=== PATIENT | female | born 1955 | race Caucasian/White ===

== ENCOUNTER → 2023-04-05 09:58 | Outpatient (BNVA) | payer MEDICARE, SELFPAY | PROVIDERS: PCP Family Medicine; Visit Provider Family Medicine | DX: I10 Essential (primary) hypertension (principal); E03.9 Hypothyroidism, unspecified; M17.12 Unilateral primary osteoarthritis, left knee | CPT/HCPCS: 80053; 80061; 82043; 84443; 85025 ==

== ENCOUNTER 2023-10-01 14:34 | Outpatient (CLI) | payer MEDICARE, SELFPAY ==
--- NOTE | 2023-10-01 14:40 | XRR_ITS ---
PROCEDURE INFORMATION: Exam: XR Left Knee Exam date and time: 10/01/2023 2:46 PM Age: 68 years old Clinical indication: Pain; Knee; Left; Additional info: Left knee pain TECHNIQUE: Imaging protocol: Radiologic exam of the left knee. Views: 3 views. COMPARISON: No relevant prior studies available. FINDINGS: Bones/joints: Moderate arthritis medial compartment left knee. Moderate arthritis left patellofemoral articulation. Large left knee joint effusion. Otherwise, unremarkable. Soft tissues: Normal. XR/XR knee LT 3V* [id number] IMPRESSION: Moderate arthritis with large left knee joint effusion.
== END 2023-10-01 14:35 | disposition home or self-care (01) ==
LOC: RAD 14:37
PROVIDERS: PCP Family Medicine; Visit Provider Family Medicine
DX: M17.12 Unilateral primary osteoarthritis, left knee (principal); I10 Essential (primary) hypertension; E03.9 Hypothyroidism, unspecified
CPT/HCPCS: 73562; 80053; 84443

== ENCOUNTER 2023-10-09 09:52 | Outpatient (CLI) | payer MEDICARE, SELFPAY ==
--- NOTE | 2023-10-09 10:30 | MM_ITS ---
WS: [id number] BILATERAL SCREENING DIGITAL TOMOSYNTHESIS MAMMOGRAM WITH CAD HISTORY: screening COMPARISON: None available. Bilateral CC and MLO views with tomosynthesis and synthetic mammography submitted. Computer aided det ection analyzed. Breast composition: There are scattered areas of fibroglandular density. No suspicious masses, microc alcifications or architectural distortion. Arterial calcifications and round small scattered calcific ations in each breast. IMPRESSION: MM/[place] [id number] BI-RADS: 2-Benign FOLLOW UP: 1 Year Follow-up
== END 2023-10-09 09:53 | disposition home or self-care (01) ==
LOC: RAD 09:53
PROVIDERS: PCP Family Medicine; Visit Provider Family Medicine
DX: Z12.31 Encounter for screening mammogram for malignant neoplasm of breast (principal)
CPT/HCPCS: 77063; 77067

== ENCOUNTER → 2023-11-13 09:58 | Outpatient (BNVA) | payer MEDICARE, SELFPAY | PROVIDERS: PCP Family Medicine; Referring Provider Family Medicine; Visit Provider Student in an Organized Health Care Education/Training Program | DX: M17.12 Unilateral primary osteoarthritis, left knee; Z46.89 Encounter for fitting and adjustment of other specified devices | CPT/HCPCS: 20610; 73560; 73565; 97760; 99204; J3301; L1851 ==

== ENCOUNTER 2023-11-13 11:31 | Outpatient (CLI) | payer MEDICARE, SELFPAY | END 2023-11-13 11:32 | disposition home or self-care (01) | LOC: SPT 11:31 | PROVIDERS: PCP Family Medicine; Visit Provider Student in an Organized Health Care Education/Training Program | DX: Z46.89 Encounter for fitting and adjustment of other specified devices (principal); M17.12 Unilateral primary osteoarthritis, left knee | CPT/HCPCS: 20610; 97760; J3301; L1851 ==

== ENCOUNTER → 2024-02-26 10:28 | Outpatient (BNVA) | payer MEDICARE, SELFPAY | PROVIDERS: PCP Family Medicine; Visit Provider Physician Assistant | DX: M17.12 Unilateral primary osteoarthritis, left knee (principal) | CPT/HCPCS: 99214 ==

== ENCOUNTER → 2024-04-16 15:29 | Outpatient (BNVA) | payer MEDICARE, SELFPAY | PROVIDERS: PCP Family Medicine; Visit Provider Physician Assistant | DX: M17.12 Unilateral primary osteoarthritis, left knee (principal); Z01.818 Encounter for other preprocedural examination | CPT/HCPCS: 36415; 80053; 81001; 85025; 99213 ==

== ENCOUNTER 2024-04-22 14:22 | Outpatient (CLI) | payer MEDICARE, SELFPAY ==
--- NOTE | 2024-04-22 15:00 | CT_ITS ---
WS: [id number] CT LEFT knee, noncontrast HISTORY: M17.12 - Unilateral primary osteoarthritis, left knee TECHNIQUE: Protocol for [facility] total knee replacement has been obtained. This includes axial imaging th rough the LEFT hip, LEFT knee and LEFT ankle. DLP: 938.05 mGy.cm COMPARISON: Radiograph 11/13/2023 Mild SI joint degenerative air. Mild narrowing of the hip joints. No fracture or dislocation. No soft tissue abnormalities. LEFT knee: Mild to moderate tricompartment osteoarthritis. Marginal osteophytes. No fractures. Slight ly greater narrowing of the medial compartment. Moderate joint effusion. Negative LEFT ankle. CT/CT knee LT [facility] [id number] IMPRESSION: CT imaging provided for [facility] robotic total knee replacement.
== END 2024-04-22 14:23 | disposition home or self-care (01) ==
LOC: RAD 14:26
PROVIDERS: PCP Internal Medicine; Visit Provider Physician Assistant
DX: Z01.818 Encounter for other preprocedural examination (principal); M17.12 Unilateral primary osteoarthritis, left knee; M25.762 Osteophyte, left knee; M25.462 Effusion, left knee
CPT/HCPCS: 73700

== ENCOUNTER → 2024-04-25 10:10 | Outpatient (BNVA) | payer MEDICARE, SELFPAY | PROVIDERS: PCP Internal Medicine; Visit Provider Family Medicine | DX: Z01.818 Encounter for other preprocedural examination (principal); I49.8 Other specified cardiac arrhythmias; R94.31 Abnormal electrocardiogram [ECG] [EKG] | CPT/HCPCS: 93005 ==

== ENCOUNTER 2024-05-07 15:17 | Observation (INO) | payer MEDICARE, SELFPAY ==
[2024-05-07] VITALS (18 sets, daily range): BP systolic 122–157; BP diastolic 79–107; PULSE 57–79; RESP 14–18; TEMP 36–37.2; O2SAT 96–100; BMI 34.3
--- NOTE | 2024-05-07 11:06 | P.ANESASSM_ITS ---
Pre-Anesthetic Assessment Height/Weight: Height 5 ft 4 in Weight 200 lb O2 Del Method Room Air 05/07/24 10:51 Preop Diagnosis: Knee arthritis Operation Date: 05/07/24 12:15 Proposed Procedures p Star Robot Total Knee Arthroplasty(Left) - Vadim Layne, DO Was Beta Tiera taken within 24 hours: N/A Was Clonidine taken within 24 hours: N/A Last intake: Intake Last Liquid Date 05/06/24 Last Liquid Time 20:30 Last Solid Date 05/06/24 Last Solid Time 17:30 Social No alcohol and No tobacco Exam alert, oriented x 3, clear to auscultation bilaterally and regular rate & rhythm Airway Submandibular: within normal limits Cervical ROM: within normal limits Mallampati: Class II Dentition: full Anesthetic Plan ASA status: 3 Anesthesia: MAC and Regional (specify below) Other: No prior issues with anesthesia NPO since yesterday History of GERD on omeprazole Hypertension on lisinopril?HCTZ, taken yesterday Hypothyroidism on Synthroid Labs reviewed 04/16/2024 and acceptable for procedure today EKG showing sinus rhythm with possible old anterior MT METs greater than 4 Plan for spinal anesthetic Medications/Allergies Home Medications Medication Instructions Recorded Confirmed Last Taken Type calcium 600 mg (as 2 cap PO DAILY 01/04/23 05/06/24 05/06/24 History carbonate)-vitamin D3 12.5 mcg (500 unit) capsule (Calcium with Vit D3) omeprazole 20 mg capsule,delayed 20 mg PO DAILY 01/04/23 05/06/24 05/07/24 History release lisinopril 10 1 tab PO DAILY #90 tabs 10/01/23 05/06/24 05/06/24 Rx mg-hydrochlorothiazide 12.5 mg tablet meloxicam 15 mg tablet 15 mg PO DAILY #90 tabs 10/01/23 05/06/24 04/29/24 Rx levothyroxine 50 mcg capsule 50 mcg PO DAILY #90 caps 10/02/23 05/06/24 05/07/24 Rx Left (medial) Insurance Claims Adjuster Knee Brace #1 ea 11/13/23 11/13/23 Unknown Rx vilazodone 20 mg tablet 20 mg PO DAILY 04/25/24 05/06/24 05/06/24 History Allergies Allergy/AdvReac Type Severity Reaction Status Date / Time No Known Allergies Allergy Verified 05/06/24 11:33 [facility] Anesthesia Medical History Depression Hypothyroidism GERD (gastroesophageal reflux disease) Benign essential HTN Surgical History History of cholecystectomy H/O: hysterectomy Partial Family History Mother Stroke Dementia Father Dementia Social History Smoking and tobacco/nicotine status: never used tobacco/nicotine Alcohol intake: never Substance/Drug Use: never Lives independently: No (with spouse) Household members: spouse Housing: House Marital status: Data Anesthesia Cardiac Studies: No Data to Display
--- NOTE | 2024-05-07 11:14 | W.PM.OPSUD ---
Surgery/Procedure H&P Update DATE OF PROCEDURE: May 07, 2024 DATE H&P PERFORMED: 04/16/24 H&P UPDATE INFORMATION: I have reviewed H&P completed within last 30 days, I have examined patient prior to procedure and No changes to prior documentation CHANGES TO PREVIOUS DOCUMENTATION: No changes in health since last visit she is cleared the preoperative clearance process and ready proceed with surgical intervention today. All questions have been answered. PREOP DIAGNOSIS: Left knee degenerative joint disease PRIMARY INDICATION FOR PROCEDURE: Left knee degenerative joint disease PLANNED PROCEDURE: Operation Date: 05/07/24 12:15 Proposed Procedures p Star Robot Total Knee Arthroplasty(Left) - Vadim Layne DO
[2024-05-07 11:34] LABS: Basophils # 0.1 10^3/uL (0.0-0.1); Basophils % 0.8 %; Eosinophils # 0.2 10^3/uL (0.0-0.8); Hematocrit 40.2 % (36-47); Lymphocytes # 2.1 10^3/uL (0.8-4.8); Lymphocytes % 27.4 %; Mean Corpuscular HGB Conc 32.8 g/dL (30-55); Mean Corpuscular Hemoglobin 29.1 pg (27-33); Mean Corpuscular Volume 88.7 fl (85-98); Mean Platelet Volume 11.1 fL (7.4-10.4); Monocytes # 0.7 10^3/uL (0.2-0.9); Monocytes % 8.5 %; Neutrophils # 4.64 10^3/uL (1.8-7.7); Neutrophils % 59.8 %; Nucleated Red Blood Cells % 0 %; Platelet Count 249 10^3/cmm (157-399); Red Blood Count 4.53 10^6/uL (3.85-5.65); Red Cell Distribution Width 12.4 % (12.1-15.1); White Blood Count 7.76 10^3/uL (3.29-11.43)
[2024-05-07] MEDS: sodium chloride 0.9% 1,000 ML 30 ML IV (11:34)
[2024-05-07] MEDS: lactated ringers 500 ML IV (11:35)
[2024-05-07] MEDS: ketorolac 30 mg/mL INJ IVP (11:36)
[2024-05-07] MEDS: scopolamine 1.5 Patch 1 PATCH TRANSDERMA (11:38)
[2024-05-07] MEDS: acetaminophen 1,000 MG/100 ML PIGGYBACK 400 MG IV ×2 (11:41→20:40)
[2024-05-07 11:50] LABS: Blood Urea Nitrogen 16 mg/dL (8-23); Calcium 9.3 mg/dL (8.5-10.5); Carbon Dioxide 28 mmol/L (22-29); Chloride 105 mmol/L (98-107); Glomerular Filtration Rate 71.8 mL/min (90-130); Glucose 91 mg/dL (65-115); Osmolality Calculated 295 mOsm/kg (285-295); Sodium 142 mmol/L (136-145)
[2024-05-07 11:51] LABS: Anion Gap 13.6 (5-19); Potassium 4.6 mmol/L (3.5-5.1)
[2024-05-07] MEDS: ceFAZolin 2,000 MG in sodium chloride 0.9% (plus) 50 ML 100 MG IV ×2 (11:57→20:40)
[2024-05-07] MEDS: tranexamic acid 1,000 mg/10mL SDV 1000 MG IV (12:18)
--- NOTE | 2024-05-07 12:24 | ANES.PROC ---
Anesthesia Procedures Procedure/Date: 05/07/24 Nerve Block ^: Nerve Block 1: Main Anesthesia: general anesthesia Time Out Performed: Yes Consent: requested by attending/covering physician and from patient Nerve block location: adductor canal Anesthesia monitors applied: pulse oximetry, EKG, BP cuff and oxygen Nerve block position: supine Anesthetic Used: ropivicaine 0.5% Amount of anesthesia used (mL): 20 Ultrasound used to: recognize landmarks Nerve Stimulator Used?: Yes Interscalene/Femoral BLK: other needle (pjunk) Injection: neg aspiration of heme Patient Tolerated Procedure: well Complications: none
[2024-05-07] MEDS: ROPivacaine 0.2% Premix 100 mL 200 MG INTRA-ARTI (13:04)
[2024-05-07] MEDS: ketorolac 30 mg/mL INJ XX (13:04)
[2024-05-07] MEDS: EPINEPHrine 1 mg/mL INJ XX (13:04)
[2024-05-07] MEDS: tranexamic acid 1,000 mg/10mL SDV 1000 MG XX (13:04)
[2024-05-07] MEDS: vancomycin 1,000 MG SDV 1000 MG XX (13:07)
--- NOTE | 2024-05-07 14:41 | W.PM.BPON ---
Date of Procedure: [May 07, 2024] Surgeon: [Dr. Layne DO] Agriculture Science Teacher(s): [Jeremías Layne PA-C] Procedure(s) performed: [Left total knee arthroplasty with Star robotic assist.] Findings of the procedure(s): [Left knee degenerative joint disease. Procedure went well and as planned.] Estimated blood loss: [25 mL] Specimen(s) removed: [N/A] Post-operative diagnosis: [Left knee degenerative joint disease.]
--- NOTE | 2024-05-07 14:42 | PM.PACU ---
PACU note Narrative: Patient is a 68-year-old female just underwent a left total knee arthroplasty. Pt transferred to PACU in stable condition. Dressing is dry. pt is awake and alert. pt can wiggle toes and plantarflex and dorsiflex foot. pt able to perform straight leg raise, Femoral nerve intact. Distal pulses are palpable toes are warm and well-perfused. Cap refill is normal and under 2 seconds. Sensation to foot is intact. Pain is controlled. Exam: awake Disposition: admitted
--- NOTE | 2024-05-07 14:46 | XRR_ITS ---
PROCEDURE INFORMATION: Exam: XR Left Knee Exam date and time: 05/07/2024 2:50 PM Age: 68 years old Clinical indication: Device placement; Joint replacement hardware; Prior surgery; Surgery date: Post-operative (0-2 days); Surgery type: L tka; Additional info: Post L tka, do in pacu TECHNIQUE: Imaging protocol: Radiologic exam of the left knee. Views: 3 views. COMPARISON: CT knee LT [facility] [id number] 04/22/2024 3:13 PM FINDINGS: Bones/joints: Complete left knee arthroplasty in adequate alignment. No evidence of hardware complications. Specifically, no evidence for hardware loosening or periprosthetic fractures. No acutely displaced fractures. No joint dislocation. Normal anatomic alignment. Soft tissues: Soft tissue swelling and soft tissue emphysema. XR/XR knee LT 3V* [id number] IMPRESSION: 1. Complete left knee arthroplasty in adequate alignment. 2. Expected postsurgical soft tissue changes.
--- NOTE | 2024-05-07 14:48 | P.OP_ITS ---
Operative Report Date of procedure: May 07, 2024 Surgeon: Vadim Layne DO [place] Administrator: Jeremías Layne PA-C: PA was necessary for assistance in this case with leg positioning retraction and protection of neurovascular structures as well as assistance in implantation wound closure and dressing application. Procedure: Preoperative diagnosis: Left knee degenerative joint disease Post-op diagnosis: Same Procedure done: Left total knee arthroplasty, cemented?robotic assisted Star Implants: [place] triathlon size 4 femur CR cemented?left [place] triathlon size? 4 tibia universal baseplate cemented [place] triathlon symmetric patella size 31 mm Karine triathlon polyethylene 10mm Surgeon: Vadim Layne DO Estimated blood?loss: 25 mL Tourniquet 66mins IV fluids: 1500 mL Urine output: 100 mL Complications: None Condition: stable Disposition: floor Brief History: Patient is a 69-year-old female with with chronic?left knee degenerative joint disease.? Patient has been worked up in the outpatient setting in the orthopedic office at this point time through shared decision making given? [id number] arthritis as well as failed conservative treatment, and pt would?like to proceed with a?left total knee arthroplasty.? Through shared decision making elected to proceed with surgical intervention for?left total knee arthroplasty.? We talked about continued conservative treatment and surgical intervention as far as the risk benefits complications alternatives surgical and nonsurgical treatment options.? At this point time understanding patient risks with surgery he agrees to proceed with surgical intervention.? Once again? risk with surgery include but are not?limited to make it better make it worse blood clot, heart attack, stroke, on the table, infection, injury to nerves or vessels, persistent pain, arthrofibrosis, implant failure.? Understanding these risks patient agrees to proceed with surgical intervention consent was obtained.? All questions answered. Procedure: Patient was seen and evaluated in the preoperative holding area.? Consent was reviewed and signed with patient with plan for?left total knee arthroplasty.? All questions answered.? Correct extremity marked.? Patient seen and evaluated by the anesthesia department and once cleared for surgery was taken back to the operative suite.? Patient was placed into a supine position on the OR table.? All bony prominences were well-padded.? Patient was appropriately secured to the bed.? Patient underwent anesthesia per the anesthesia department.? Patient rece ived spinal anesthesia and? Galindo catheter was placed.? A nonsterile tourniquet was applied to the?left thigh.? At this point in time a final timeout performed.? Patient received appropriate preoperative antibiotics and TXA. Next the?left?lower extremity was then prepped and draped in standard orthopedic fashion. Esmarch tourniquet was used exsanguinate the?left?lower extremity.? Tourniquet was insufflated to 250 mmHg. A standard anterior incision was made over midline of the knee.? Sharp scalpel excision through skin and subcutaneous tissue full-thickness skin flaps were made.? Fascia was elevated off of the extensor retinaculum was stable with medial parapatellar arthrotomy was then made.? The performed standard sequential releases..? Immediately on entry into the joint patient was found to have severe eburnated bone and tricompartmental arthritic changes noted.? With significant osteophyte formation.? Next the the patella was then stuffed and the knee was then flexed.?? Caroline was placed superiorly around the anterior aspect of the femur this was freed of synovium and I subsequently then placed by 2 femur pins to establish my femur arrays for the Star robot.? These were then placed bicortically and? femur array was then appropriately secured with appropriate visualization.? Next attention was turned towards the tibial rays.? These were then drilled sequentially bicortically in parallel fashion and intraincisional.? I then placed my guide as well as my tibial array on in place.? This was appropriately secured and had excellent visualization with the Star robot.? Next the tibial checkpoint as well as femur checkpoint were then placed.? At this point time I then subsequently established my head center as well as my medial?lateral malleoli as well as my checkpoints.? Next utilizing standard Star technology I then mapped out the appropriate points and confirmation points around the femur as well as the tibia in standard fashion.? Once this was then done I then removed all osteophytes in preparation for dynamic testing.? All osteophytes were removed as well as I removed the ACL and the PCL was excised due to its significant tearing and degeneration noted.? At this point time the knee was brought into full extension and we performed our standard evaluation of our gap balancing stressing his?ligaments and extension as well as flexion appropriate adjustments were made to have appropriate gap balancing in both flexion and extension.? This plan for final counts.? We get a preoperative plan evaluating our implants which was a size 4 femur and a size 4 tibia.? Next we brought in the Star robot and sequentially made our femur cuts.? All excess bony cuts were then removed.? Finally we made our tibial cut.? Once this was done a standard PCL retractor was then placed into this position I excised the medial and?lateral meniscus.? The tibial cut was then subsequently removed all excess bony debris was removed.? I then utilized a?lamina manager strategic development and remove the posterior osteophytes.? At this point time sized the tibia and confirmed this was a size 4.? I utilized our blunt probe to establish rotation of tibial implant.? Once this was done I then placed my tibia size 4 trial in appropriate position and then subsequently placed tibial pins to hold this into place placed a size 10 mm poly as well as a size 4 femur which was appropriately impacted in place knee was then subsequently brought into extension. Trials were then assessed,? this was stable with varus valgus stress in extension as well as had symmetrical translation when brought into flexion demonstrating symmetrical gaps. I had excellent balance gaps in flexion and extension with varus and valgus stresses.? At this point I was satisfied with these implants these were then verified and opened on the back table size 4 tibia, size4 femur,? size 10 mm polythickness.? We did confirm appropriate gap balancing and stresses as well as alignment utilizing? Star and were satisfied with this plan.? ?At this point time with my trials in place I then towel clip the patella everted this made appropriate measurements subsequently utilizing freehand technique performed by patellar resurfacing this was confirmed to be appropriate resection and subsequently sized to be a 31 mm symmetric.? My drill peg guides were then clamped and appropriate position and appropriate position in the paz lla for appropriate tracking and parallel with the joint.? Pegs were drilled trial implant was placed and the knee was then subsequently ranged and found to have excellent patellar tracking.? Femur pegs were then drilled.?All checkpoints as well as guidepins and arrays were removed and appropriate counts made. Satisfied with our tibial placement rotation I then utilized the keel punch and prepped the tibia.? At this point time all of our trial implants were removed.? ? The wound bed? was thoroughly irrigated and dried and prepped for cementation.? Cement was mixed on the back table.? Once cement was ready this was then covered onto the tibia and the tibial baseplate was then impacted and all excess cement was removed.? Next the polyethylene was then impacted into place on the tibial baseplate.? Next cement was placed onto the femur as well as under the femur implants and impacted in to place and all excess cement was extruded and removed.? Knee was taken into full extension? to clear all excess cement was removed.? Warm saline was placed over the joint.? I then towel clip patella and dried for cementation. cemented the patella into place.? This was all clamped and the cement was allowed to cure.? Thorough irrigation performed with pulse?lavage.? I then placed my periarticular injection while the cement was curing.? Once cured the knee was taken through range of motion and had e xcellent stability and gaps were balanced in flexion and extension.? Tourniquet was then deflated. hemostasis satisfactory with electrocautery.? Vancomycin powder placed in wound bed for antibiotic prophylaxis. Next I then subsequently closed the capsule with Ethibond suture as well as a running strata fix suture.? Knee was then taken through range of motion 30 times.? Next the skin was then closed in?layered fashion of running stratifix sutures of deep and subcutenous tissue and skin.? ?closed in flexion and Prineo glue was then placed over the incision this allowed to cure.? Incision was covered with CRISTIANA, with ABDs soft roll and Jimmy wrap.? Patient was then awakened from anesthesia and taken to PACU in stable condition. Disposition: Patient taken to PACU in stable condition will be admitted to the floor for pain control PT/OT weight-bear as tolerated?left?lower extremity dressing changes as needed, DVT prophylaxis. Pain control. Patient will receive appropriate postoperative antibiotics. internal medicine team for medical management.? Patient will follow up with the office in 2 weeks.? Patient understands agrees with current plan.? All questions answered.
--- NOTE | 2024-05-07 15:36 | ANE.PACU2 ---
Inpatient post-anesthesia follow up: Airway intact: Yes Vital signs: Temperature 98.2 F Pulse Rate 65 Respiratory Rate 13 Blood Pressure 106/74 Pulse Oximetry 98 Oxygen Delivery Me thod Room Air Oxygen Flow Rate Fraction of Inspir ed Oxygen Hydration adequate: Yes Nausea and vomiting: No Pain level: 1 Mental status: Baseline
[2024-05-07] MEDS: lactated ringers 1,000 ML 100 ML IV (16:10)
[2024-05-07] MEDS: oxyCODONE 5 mg IR Tab/Cap PO (20:49)
[2024-05-07] MEDS: tranexamic acid 1,000 MG/100 ML PREMIX 600 MG IV (21:47)
[2024-05-07] MEDS: chlorhexidine gluconate 0.12% Btl 473 mL 30 ML MUCOUS MEM (21:57)
[2024-05-08] VITALS (8 sets, daily range): BP systolic 106–114; BP diastolic 65–76; PULSE 54–71; RESP 13–18; TEMP 36.4–36.9; O2SAT 93–98
[2024-05-08] MEDS: lactated ringers 1,000 ML 100 ML IV (01:34)
[2024-05-08] MEDS: HYDROmorphone 1 mg/mL INJ 1 mL 0.5 MG IVP (03:47)
[2024-05-08] MEDS: ketorolac 30 mg/mL INJ 15 MG IVP ×2 (03:47→10:47)
[2024-05-08] MEDS: ceFAZolin 2,000 MG in sodium chloride 0.9% (plus) 50 ML 100 MG IV ×2 (03:48→11:31)
[2024-05-08] MEDS: acetaminophen 1,000 MG/100 ML PIGGYBACK 400 MG IV ×2 (03:48→10:46)
[2024-05-08 05:34] LABS: Basophils % 0.4 %; Eosinophils # 0.2 10^3/uL (0.0-0.8); Eosinophils % 2.3 %; Hematocrit 32.8 % (36-47); Lymphocytes # 1.8 10^3/uL (0.8-4.8); Lymphocytes % 18.8 %; Mean Corpuscular Hemoglobin 29.2 pg (27-33); Mean Corpuscular Volume 91.4 fl (85-98); Mean Platelet Volume 11.5 fL (7.4-10.4); Monocytes # 0.7 10^3/uL (0.2-0.9); Monocytes % 7.3 %; Neutrophils # 6.59 10^3/uL (1.8-7.7); Neutrophils % 70.8 %; Nucleated Red Blood Cells % 0 %; Platelet Count 206 10^3/cmm (157-399); Red Blood Count 3.59 10^6/uL (3.85-5.65); Red Cell Distribution Width 12.5 % (12.1-15.1); White Blood Count 9.31 10^3/uL (3.29-11.43)
[2024-05-08 05:56] LABS: Anion Gap 10.4 (5-19); Blood Urea Nitrogen 14 mg/dL (8-23); Calcium 7.9 mg/dL (8.5-10.5); Carbon Dioxide 25 mmol/L (22-29); Chloride 108 mmol/L (98-107); Creatinine Clr Calc Pharmacy 69.1593; Glomerular Filtration Rate 62.6 mL/min (90-130); Glucose 88 mg/dL (65-115); Osmolality Calculated 290 mOsm/kg (285-295); Potassium 3.4 mmol/L (3.5-5.1); Sodium 140 mmol/L (136-145)
[2024-05-08] MEDS: oxyCODONE 5 mg IR Tab/Cap PO ×2 (06:33→10:47)
[2024-05-08] MEDS: iron polysaccharide complex 150 mg Capsule PO (08:48)
[2024-05-08] MEDS: calcium carb-vit d 600mg/400unit 1 Tablet 1 EACH PO (08:48)
[2024-05-08] MEDS: multivitamin therapeutic Tablet 1 TAB PO (08:48)
[2024-05-08] MEDS: docusate sodium 100 mg Capsule PO (08:49)
[2024-05-08] MEDS: apixaban 5 mg Tablet 2.5 MG PO (08:49)
[2024-05-08] MEDS: sennosides-docusate Tablet 2 TAB PO (08:49)
--- NOTE | 2024-05-08 08:57 | PC.NURSE ---
caller was told that due to pcp being on vacation first available hospital f/u is may 26 @11 am
--- NOTE | 2024-05-08 12:11 | P.CONIM_ITS ---
Providers/Reason For Consult 2 Consulting Physician/Specialty*: Dr. Gillespie/internal medicine Reason for Consult*: Hypokalemia Attending Physician: Vadim Layne DO Primary Care Provider: Eric Duron MD History of Present Illness History of Present Illness Debbie Harvey is a 68 year old female with past medical history of hypertension, depression, hypothyroidism who underwent left total knee arthroplasty on 05/07. Patient on follow-up morning labs was found to have hypokalemia with potassium of 3.4 hence medicine was consulted for further evaluation and management. Patient denies any nausea, vomiting, headache, dizziness. Did have 1 large bowel movement earlier at night. Denies any diarrhea. Denies any weakness in her arms or limbs. States she has had low potassium levels on and off in the past. Review of Systems 2 General: Reports: 10 or more systems reviewed and unremarkable except in HPI and below Const: Denies: fever(s), chills, body aches, change in appetite, change in weight, malaise, night sweats, diaphoresis, change in sleep pattern, daytime sleepiness or snoring Eyes: Denies: change in vision, blurry vision, photophobia, eye discomfort or eye discharge ENMT: Denies: throat pain, enlarged tonsils, hoarseness, mouth pain, oral sores, dry mouth, tinnitus, nasal congestion or post nasal drip Card: Denies: chest pain, palpitations, irregular heart rhythm, edema, swelling of feet/ankles, lightheadedness, syncope, pre-syncope, dyspnea on exertion, orthopnea, leg pain with exertion or acrocyanosis Resp: Denies: dyspnea, productive cough, non-productive cough, wheezing, stridor, pain on inspiration, change in phlegm color, hemoptysis or chest congestion GI: Denies: abdominal pain, nausea, vomiting, hematemesis, coffee ground emesis, dysphagia, heartburn, diarrhea, constipation, bloating, GI cramping, change in bowel habits, pain on defecation, hematochezia or melena : Denies: flank pain, dysuria, urinary frequency, urinary urgency, urinary hesitancy, nocturia or hematuria Musc: Denies: neck pain, back pain, extremity pain, joint pain, joint swelling, joint redness, joint stiffness or limited range of motion Neuro: Denies: headache(s), numbness in extremities, weakness in extremities, sensory changes, lack of coordination, difficulty walking, frequent falls, dizziness, vertigo, confusion, Slurred speech present, difficulty communicating thoughts or seizure-like activity Psych: Denies: anxiety, depression, mood swings, panic attacks, hopelessness or irritability Endo: Denies: polyuria, polydipsia, tired all the time, cold intolerance, excessive sweating, flushing or heat intolerance Kiet/Lymph: Denies: easy bruising or easy bleeding All/Imm: Denies: tongue swelling, facial swelling or acute wheezing Medications/Allergies Home Medications Medication Instructions Recorded Confirmed Last Taken Type calcium 600 mg (as 2 cap PO DAILY 01/04/23 05/06/24 05/06/24 History carbonate)-vitamin D3 12.5 mcg (500 unit) capsule (Calcium with Vit D3) omeprazole 20 mg capsule,delayed 20 mg PO DAILY 01/04/23 05/06/24 05/07/24 History release lisinopril 10 1 tab PO DAILY #90 tabs 10/01/23 05/06/24 05/06/24 Rx mg-hydrochlorothiazide 12.5 mg tablet meloxicam 15 mg tablet 15 mg PO DAILY #90 tabs 10/01/23 05/06/24 04/29/24 Rx levothyroxine 50 mcg capsule 50 mcg PO DAILY #90 caps 10/02/23 05/06/24 05/07/24 Rx Left (medial) Cigarette Paper Tester Knee Brace #1 ea 11/13/23 05/08/24 Unknown Rx vilazodone 20 mg tablet 20 mg PO DAILY 04/25/24 05/06/24 05/06/24 History apixaban 2.5 mg tablet (Eliquis) 2.5 mg PO BID 2 weeks #28 tabs 05/07/24 Unknown Rx ondansetron 4 mg disintegrating 4 mg PO Q8H PRN nausea and 05/07/24 Unknown Rx tablet vomiting 3 days #9 tabs calcium 600 mg (as 1 tab PO DAILY [facility] and 05/08/24 Unknown Rx carbonate)-vitamin D3 10 mcg (400 healing 30 days #30 tabs unit) tablet (Calcium 600 + D(3)) oxycodone 5 mg tablet 5 mg PO Q6H PRN pain postop 7 days 05/08/24 Unknown Rx #28 tabs Allergies Allergy/AdvReac Type Severity Reaction Status Date / Time No Known Allergies Allergy Verified 05/06/24 11:33 Current Medications Generic Name Dose Route Start Last Admin Trade Name Ally PRN Reason Stop Dose Admin Apixaban 2.5 mg 05/08/24 09:00 05/08/24 08:49 Apixaban 5 Mg Tablet PO 2.5 mg BID DG Administration Calcium Carbonate 1 each 05/07/24 18:00 05/08/24 08:48 Calcium Carb-Vit D 600mg/400unit 1 Tablet PO 1 each BID DG Administration Chlorhexidine Gluconate 30 ml 05/07/24 17:00 05/08/24 09:02 Chlorhexidine Gluconate 0.12% Btl 473 Ml MUCOUS MEM Not Given QID [facility] Docusate Sodium 100 mg 05/07/24 18:00 05/08/24 08:49 Docusate Sodium 100 Mg Capsule PO 100 mg BID DG Administration Hydromorphone HCl 0.5 mg 05/07/24 15:43 05/08/24 03:47 Hydromorphone 1 Mg/Ml Inj 1 Ml IVP 0.5 mg Q4H PRN Administration BREAKTHROUGH PAIN Lactated Ringer's 1,000 mls @ 100 mls/hr 05/07/24 15:43 05/08/24 01:34 Lactated Ringers IV 100 mls/hr .Q10H DG Administration Cefazolin Sodium 2,000 mg/ 50 mls @ 100 mls/hr 05/07/24 20:00 05/08/24 11:31 Sodium Chloride IV 05/08/24 12:29 100 mls/hr Q8H DG Administration Protocol Acetaminophen 1,000 mg in 100 mls @ 400 mls/hr 05/07/24 19:00 05/08/24 11:28 Acetaminophen IV 05/08/24 12:14 Infused Q8H DG Infusion Ketorolac Tromethamine 15 mg 05/07/24 15:43 05/08/24 10:47 Ketorolac 30 Mg/Ml Inj IVP 15 mg Q6H PRN Administration MODERATE TO SEVERE PAIN Multivitamins Therapeutic 1 tab 05/08/24 09:00 05/08/24 08:48 Multivitamin Therapeutic Tablet PO 1 tab DAILY DG Administration Mupirocin 1 applic 05/07/24 18:00 05/08/24 09:02 Mupirocin Oint 22 Gm NASAL 05/12/24 17:59 Not Given BID [facility] Protocol Oxycodone HCl 5 mg 05/07/24 15:43 05/08/24 10:47 Oxycodone 5 Mg Ir Tab/Cap PO 5 mg Q4H PRN Administration MODERATE PAIN Polysaccharide Iron Complex 150 mg 05/07/24 18:00 05/08/24 08:48 Iron Polysaccharide Complex 150 Mg Capsule PO 150 mg BIDWM DG Administration Senna/Docusate Sodium 2 tab 05/07/24 18:00 05/08/24 08:49 Sennosides-Docusate Tablet PO 2 tab BID DG Administration PFSH Acute 2 PFSH: Medical History Depression Hypothyroidism GERD (gastroesophageal reflux disease) Benign essential HTN Surgical History History of cholecystectomy H/O: hysterectomy Partial Family History Mother Stroke Dementia Father Dementia Social History Smoking and tobacco/nicotine status: never used tobacco/nicotine Alcohol intake: never Substance/Drug Use: never Lives independently: No (with spouse) Household members: spouse Housing: House Marital status: Vitals/I&O/Wt Last Vital Signs Temp 98.2 F 05/08/24 11:54 Pulse 65 05/08/24 11:54 Resp 13 05/08/24 11:54 BP 106/74 05/08/24 11:54 Pulse Ox 98 05/08/24 11:54 O2 Del Method Room Air 05/07/24 17:11 05/07/24 05/08/24 05/08/24 22:59 06:59 14:59 Intake Total 1000 / 1650 1390 / 3040 400 / 400 Output Total 325 / 350 550 / 900 Balance 675 / 1300 840 / 2140 400 / 400 Weight last 48 hrs Weight 96.071 kg Weight 90.718 kg Physical Exam 2 Narrative: General: No acute distress, AO x3 HEENT: PERRLA, pupils bilaterally equal and reactive Chest: Normal vesicular breath sounds, no added sounds, equal good air entry bilaterally CVS: S1-S2 regular, no murmurs, no tachycardia, no gallops, no rubs Abdomen: Soft, nontender, no organomegaly, bowel sounds present Neuro: No focal deficits, no facial deformity, AO x3, power 5/5 in all limbs Urinary Catheter Management: Galindo: Cath Placed During This Visit: yes, but has since been removed by the nurse Reason for Continuing Indwelling Catheter: Decision to DC Catheter Urinary Catheter Date of Insertion: 05/07/24 Urinary Catheter Time of Insertion: 12:30 Date Urinary Catheter Removed: 05/08/24 Time Urinary Catheter Discontinued: 07:34 Data 05/08/24 04:55 05/08/24 04:55 A&P Assessment and plan (1) Hypokalemia: Potassium 3.4. Patient denies any symptoms due to hypokalemia. Did have a large bowel regimen today. Denies any nausea vomiting or diarrhea. Does take hydrochlorothiazide at home. Check magnesium level. Repleted with 40 mg of oral potassium. (2) Encounter for postoperative care: (3) Benign essential HTN: (4) Hypothyroidism: Qualifiers: Hypothyroidism type: acquired Qualified Code(s): E03.9 - Hypothyroidism, unspecified Plan Patient is being planned to discharge through orthopedic team. If magnesium level is normal patient is stable to be discharged from medical standpoint. She can go home on her home dose of levothyroxine, lisinopril. Hydrochlorothiazide can be withheld. She is advised to follow-up with a primary care provider within next 1 week for a repeat BMP. Thank you for involving us in care of Ms. Harvey. Please call back with any questions. Consult Attestations 2 Medical Necessity Statement: As per primary team. Diagnoses Hypokalemia E87.6 Encounter for postoperative care Z48.89 Benign essential HTN I10 Acquired hypothyroidism E03.9 Hypothyroidism type: acquired
[2024-05-08] MEDS: potassium chloride ER 20 mEq Tablet 40 MEQ PO (12:25)
--- NOTE | 2024-05-08 12:45 | P.DS_ITS ---
Discharge Providers Date of Admission: 05/07/24 15:17 Date of Discharge: May 08, 2024 Attending Provider at Admission: Vadim Layne DO Attending Provider at Discharge: Vadim Layne DO Consults: Internal medicine?Dr. Gillespie Primary Care Provider: Eric Duron MD Reason for Visit Reason for Visit: M17.12 Brief History: Status post left total knee arthroplasty?[facility] robotic assisted Hospital Course Hospital Course Patient presented to the preoperative holding area with plan for [ left] total knee arthroplasty after patient has been worked up in the outpatient setting for failed conservative treatment of [left ] knee degenerative joint disease. Once cleared by anesthesia for surgery patient subsequently was taken back to the operative suite underwent anesthesia per anesthesia department and then subse quently underwent a [ left] total knee arthroplasty. Procedure was performed without any complications patient was taken to PACU in stable condition patient recovered well in PACU and then was admitted to the floor postoperatively internal medicine was consulted and on board for medical management and assistance with care. Patient received appropriate PT/OT, postoperative antibiotics, postoperative TXA, pain control, postoperative DVT prophylaxis. Elevation and ice. Patient encouraged for knee range of motion allowed weightbearing as tolerated to the operative lower extremity. Dressing was changed as needed, labs were monitored daily. Patient recovered well postoperatively and worked well and progressed well with therapy. It was determined on postoperative day [1 ] the patient was stable for discharge from an orthopedic standpoint and medicine. Patient was comfortable with discharge and plan was discharged home. Patient received appropriate discharge instructions as well as pain medication and DVT prophylaxis postoperatively. Given appropriate instructions for dressing management. Patient will follow-up with Dr. Layne/orthopedics in the office in 2 weeks. All questions answered. Understand if there is any issues questions or concerns and contact the office. Physical Exam Narrative: Examination left knee: Dressings are in place clean dry and intact patient's compartments are soft compressible normal postoperative swelling and tenderness palpation about the left knee. Calf soft nontender patient is able to wiggle toes plantarflex and dorsiflex ankle sensations intact to light touch distally. Distal pulses are palpable. Urinary Catheter Management: Galindo: Cath Placed During This Visit: yes, but has since been removed by the nurse Reason for Continuing Indwelling Catheter: Decision to DC Catheter Urinary Catheter Date of Insertion: 05/07/24 Urinary Catheter Time of Insertion: 12:30 Date Urinary Catheter Removed: 05/08/24 Time Urinary Catheter Discontinued: 07:34 Discharge Data Studies Completed and Pending Completed Studies During Hospitalization Category Date Time Status XR knee LT 3V* [id number] Routine Exams 05/07/24 14:46 Completed Pending at discharge Category Date Time Status A1C [Hemoglobin A1C] Routine Lab 05/08/24 12:09 Ordered Basic Metabolic Panel AM LABS Lab 05/09/24 04:00 Ordered Basic Metabolic Panel AM LABS Lab 05/10/24 04:00 Ordered Complete Blood Count w/Auto AM LABS Lab 05/09/24 04:00 Ordered Complete Blood Count w/Auto AM LABS Lab 05/10/24 04:00 Ordered Ferritin Routine Lab 05/08/24 12:09 Ordered Lipid Panel Routine Lab 05/08/24 12:09 Ordered Magnesium Routine Lab 05/08/24 12:09 Ordered TIBC [Total Iron Binding Capacity] Routine Lab 05/08/24 12:09 Ordered Radiology Impressions Knee X-Ray 05/07/24 14:46 IMPRESSION: 1. Complete left knee arthroplasty in adequate alignment. 2. Expected postsurgical soft tissue changes. Laboratory Results WBC 9.31 10^3/uL (3.29-11.43) 05/08/24 04:55 RBC 3.59 10^6/uL (3.85-5.65) L 05/08/24 04:55 Hgb 10.50 g/dL (11.27-16.99) L 05/08/24 04:55 Hct 32.8 % (36-47) L 05/08/24 04:55 MCV 91.4 fl (85-98) 05/08/24 04:55 MCH 29.2 pg (27-33) 05/08/24 04:55 MCHC 32.0 g/dL (30-55) 05/08/24 04:55 RDW 12.5 % (12.1-15.1) 05/08/24 04:55 Plt Count 206 10^3/cmm (157-399) 05/08/24 04:55 MPV 11.5 fL (7.4-10.4) H 05/08/24 04:55 Neut % (Auto) 70.8 % 05/08/24 04:55 Lymph % (Auto) 18.8 % 05/08/24 04:55 Elmore % (Auto) 7.3 % 05/08/24 04:55 Eos % (Auto) 2.3 % 05/08/24 04:55 Baso % (Auto) 0.4 % 05/08/24 04:55 Neut # (Auto) 6.59 10^3/uL (1.8-7.7) 05/08/24 04:55 Lymph # (Auto) 1.8 10^3/uL (0.8-4.8) 05/08/24 04:55 Elmore # (Auto) 0.7 10^3/uL (0.2-0.9) 05/08/24 04:55 Eos # (Auto) 0.2 10^3/uL (0.0-0.8) 05/08/24 04:55 Baso # (Auto) 0.0 10^3/uL (0.0-0.1) 05/08/24 04:55 Nucleated RBC % (auto) 0 % 05/08/24 04:55 Nucleated RBCs # 0.0 /100WBC 05/08/24 04:55 Sodium 140 mmol/L (136-145) 05/08/24 04:55 Potassium 3.4 mmol/L (3.5-5.1) L 05/08/24 04:55 Chloride 108 mmol/L (98-107) H 05/08/24 04:55 Carbon Dioxide 25 mmol/L (22-29) 05/08/24 04:55 Anion Gap 10.4 (5-19) 05/08/24 04:55 BUN 14 mg/dL (8-23) 05/08/24 04:55 Creatinine 0.9 mg/dL (0.5-0.9) 05/08/24 04:55 GFR Calculation 62.6 mL/min (90-130) L 05/08/24 04:55 Glucose 88 mg/dL (65-115) 05/08/24 04:55 Calculated Osmolality 290 mOsm/kg (285-295) 05/08/24 04:55 Calcium 7.9 mg/dL (8.5-10.5) L 05/08/24 04:55 Blood Type O Positive 05/07/24 11:18 Rho(D) Type Rh positive 05/07/24 11:18 Antibody Screen Negative 05/07/24 11:18 Vitals Last Vital Signs Temp 98.2 F 05/08/24 11:54 Pulse 65 05/08/24 11:54 Resp 13 05/08/24 11:54 BP 106/74 05/08/24 11:54 Pulse Ox 98 05/08/24 11:54 O2 Del Method Room Air 05/07/24 17:11 Discharge Plan Discharge Patient Disposition: Home Condition: Stable Prescriptions: New Eliquis 2.5 mg tablet 2.5 mg PO BID 14 Days Qty: 28 0RF calcium carbonate-vitamin D3 [Calcium 600 + D(3)] 600 mg-10 mcg (400 unit) tablet 1 tab PO DAILY 30 Days Qty: 30 0RF Continued omeprazole 20 mg capsule,delayed release(DR/EC) 20 mg PO DAILY calcium carbonate-vitamin D3 [Calcium 600 with Vitamin D3] 600 mg-12.5 mcg (500 unit) capsule 2 cap PO DAILY lisinopril-hydrochlorothiazide 10-12.5 mg tablet 1 tab PO DAILY Qty: 90 1RF (DME) Left (medial) Onsite Health Coach Knee Brace See Rx Instructions .Route .MEDSUPPLY Qty: 1 0RF Rx Instructions: As directed vilazodone 20 mg tablet 20 mg PO DAILY levothyroxine 50 mcg capsule 50 mcg PO DAILY Qty: 90 1RF Held meloxicam 15 mg tablet 15 mg PO DAILY Qty: 90 1RF Hold Instructions: Resume on 05/22/24. Discharge Orders: Discharge Order (Routine); Ordered 05/08/24 Ordered By: Vadim Layne Referrals: Eric Duron MD [Primary Care Provider] - 05/26/24 11:00 am Vadim Layne DO [Physician] - 05/22/24 9:30 am Discharge Diet: Regular Discharge Activity: Limit activity as instructed and Use walker/crutches as instructed Patient Instructions: Oxycodone, Rapid Release (By mouth), Apixaban (By mouth), Acute Wound Care (DC), Total Knee Replacement (GEN), Post Anesthesia Care Activity Restrictions/Additional Instructions: ortho DC instructions Christine Dressing--Keep dressing on and dry. After 3 days you can remove some of the dressing and shower. disconnect battery pack when showering. Christine dressing will stay on until follow up appt in 2 weeks. The battery pack for the dressing will at 5-7 days. Battery pack can be removed and discarded once batteries . Patient may weight-bear as tolerate to the operative extremity Utilize walker as needed Encourage knee range of motion Ice and elevate as needed for pain and swelling Take pain medication as prescribed Take antinausea medication as needed Pain medication can cause constipation. take [id number] stool softeners and or MiraLAX. Take prescribed Eliquis twice daily for the next 14 days for blood clot prevention May supplement for pain with ibuprofen [id number] as needed No baths or soaks Follow-up in the orthopedic office in 2 weeks Contact the office for any questions or concerns Discharge Attestations Time Spent in Discharge Care*: less than 30 min Quality Metrics Clinical Quality Measures [ No reported AMI, CVA or VTE this stay] Coding Level of Care Code Acute Code for Reg Lr
[2024-05-08 13:25] LABS: Chol HDL Ratio 3.88 mg/dL (0.0-4.40); Cholesterol 159 mg/dL (0-200); Ferritin 143 ng/mL (15-150); HDL Cholesterol 41 mg/dL (60-100); Iron 39 ug/dL (37-145); LDL Cholesterol Calculated 100 mg/dL (50-129); LDL HDL Ratio 2.44 RATIO (0.00-3.22); Magnesium 1.7 mg/dL (1.7-2.3); Total Iron Binding Capacity 195 mcg/dl; Triglycerides 90 mg/dL (0-150); Unsaturated Iron Binding 156 ug/dL (112-347)
[2024-05-08 13:31] LABS: Estmated Average Glucose 108; Hemoglobin A1C 5.4 % (4.0-6.0)
--- NOTE | 2024-05-08 14:10 | PC.NURSE ---
Discharge Note Patient discharged to home via personal vehicle accompanied by . Discharge instructions reviewed with patient and/or sales representative raw fibers. Mobile pharmacy medications and/or prescriptions provided. Belongings/home medications returned.
== END 2024-05-08 14:12 | disposition home or self-care (01) ==
LOC: MEDSURG 15:17
PROVIDERS: Physician Assistant; Student in an Organized Health Care Education/Training Program; Admitting Provider Student in an Organized Health Care Education/Training Program; PCP Internal Medicine; Visit Provider Student in an Organized Health Care Education/Training Program
PROC: 8E0Y0CZ Robotic Assisted Procedure of Lower Extremity, Open Approach (ICD-10-PCS; CPT 27447; principal; 2024-05-07 12:15)
DX: M17.12 Unilateral primary osteoarthritis, left knee (principal); I10 Essential (primary) hypertension; F32.A Depression, unspecified; E03.9 Hypothyroidism, unspecified; K21.9 Gastro-esophageal reflux disease without esophagitis; E87.6 Hypokalemia
CPT/HCPCS: 20985; 27447; 36415; 51702; 73562; 80048; 80061; 82728; 83036; 83540; 83550; 83735; 85025; 86850; 86900; 97110; 97116; 97161; 97165; C1776; G0378; J0131; J0171; J0690; J1171; J1885; J2704; J2795; J3370; J7030; J7120

== ENCOUNTER → 2024-05-22 09:40 | Outpatient (BNVA) | payer MEDICARE, SELFPAY | PROVIDERS: PCP Internal Medicine; Visit Provider Physician Assistant | DX: M17.12 Unilateral primary osteoarthritis, left knee (principal); Z96.652 Presence of left artificial knee joint | CPT/HCPCS: 73560; 73565; 99024 ==

== ENCOUNTER 2024-05-28 06:00 | Outpatient (RCR) | payer MEDICARE, SELFPAY | END 2024-06-21 23:59 | disposition home or self-care (01) | LOC: TPT 06:00 | PROVIDERS: Visit Provider Physician Assistant | DX: Z47.1 Aftercare following joint replacement surgery (principal); Z96.652 Presence of left artificial knee joint | CPT/HCPCS: 97110; 97140; 97162 ==

== ENCOUNTER 2024-06-22 06:00 | Outpatient (RCR) | payer MEDICARE, SELFPAY | END 2024-07-10 23:59 | disposition home or self-care (01) | LOC: TPT 06:00 | PROVIDERS: Visit Provider Physician Assistant | DX: Z47.1 Aftercare following joint replacement surgery (principal); Z96.652 Presence of left artificial knee joint | CPT/HCPCS: 97110 ==

== ENCOUNTER → 2024-08-14 09:46 | Outpatient (BNVA) | payer MEDICARE, SELFPAY | PROVIDERS: Visit Provider Student in an Organized Health Care Education/Training Program | DX: Z96.652 Presence of left artificial knee joint (principal); R03.0 Elevated blood-pressure reading, without diagnosis of hypertension | CPT/HCPCS: 73560; 73565; 99213 ==

== ENCOUNTER 2024-12-01 08:39 | Outpatient (CLI) | payer MEDICARE, SELFPAY ==
--- NOTE | 2024-12-01 08:47 | MM_ITS ---
WS: [id number] BILATERAL SCREENING DIGITAL TOMOSYNTHESIS MAMMOGRAM WITH CAD HISTORY: SCREENING COMPARISON: 10/09/2023 Bilateral CC and MLO views with tomosynthesis and synthetic mammography submitted. Computer aided detection analyzed. Breast composition: The breasts are heterogeneously dense, which may obscure small masses. No suspicious masses, microcalcifications or architectural distortion. Increasing vascular calcifications in the LEFT breast. Otherwise no change. MM/MM scr tomosynthesis [id number] IMPRESSION: BI-RADS: 2 - Benign FOLLOW UP: 1 Year Follow-up
== END 2024-12-01 08:40 | disposition home or self-care (01) ==
LOC: RAD 08:41
PROVIDERS: PCP Internal Medicine; Visit Provider Internal Medicine
DX: Z12.31 Encounter for screening mammogram for malignant neoplasm of breast (principal); R92.333 Mammographic heterogeneous density, bilateral breasts; R92.1 Mammographic calcification found on diagnostic imaging of breast
CPT/HCPCS: 77063; 77067

== ENCOUNTER → 2025-04-21 10:55 | Outpatient (BNVA) | payer MEDICARE, SELFPAY | PROVIDERS: PCP Family Medicine; Visit Provider Family Medicine | DX: I10 Essential (primary) hypertension (principal); E03.9 Hypothyroidism, unspecified | CPT/HCPCS: 80053; 80061; 84439; 84443; 85025 ==

== ENCOUNTER → 2025-05-12 10:51 | Outpatient (BNVA) | payer MEDICARE, SELFPAY | PROVIDERS: PCP Family Medicine; Visit Provider Student in an Organized Health Care Education/Training Program | DX: Z96.652 Presence of left artificial knee joint (principal); Z47.1 Aftercare following joint replacement surgery | CPT/HCPCS: 73560; 73565; 99213 ==